=== PATIENT | male | born 1975 | race Caucasian/White ===

== ENCOUNTER 2019-07-14 18:44 | Emergency (ER) | payer OTHER ==
[~2019-07-14] VITALS: Ht 172.7 cm; Wt 81.6 kg
--- NOTE | 2019-07-14 19:04 | NUR ---
Patient arrive at the ER with chief complaint of adore. lower extremity pain. Left LE more painful than right. Patient with left leg/foot splint in place. Fractured his foot x1 month ago per pt. Pt AAOx4. No cardiovascular concern. Respiratory even and unlabored. No /GI concern.
--- NOTE | 2019-07-14 19:06 | NUR ---
Dr Perry at bedside for MSE.
[2019-07-14 19:12] LABS: BASOPHILS % (AUTO) 0.8 % (0.0-2.0); EOSINOPHILS # (AUTO) 0.1 K/uL (0.0-0.7); EOSINOPHILS % (AUTO) 2.4 % (0.0-7.0); HEMATOCRIT 41.7 % (36.7-47.1); HEMOGLOBIN 14.1 g/dL (12.5-16.3); LYMPHOCYTES # (AUTO) 2.1 K/uL (20.0-40.0); LYMPHOCYTES % (AUTO) 38.2 % (20.5-51.5); MEAN CORPUSCULAR HEMOGLOBIN 31.1 uug (23.8-33.4); MEAN CORPUSCULAR HGB CONC 34 g/dL (32.5-36.3); MEAN CORPUSCULAR VOLUME 92.1 fL (73.0-96.2); MONOCYTES # (AUTO) 0.6 K/uL (2.0-10.0); MONOCYTES % (AUTO) 11.5 % (0.0-11.0); NEUTROPHILS # (AUTO) 2.6 K/uL (1.8-8.9); NEUTROPHILS % (AUTO) 47.1 % (38.5-71.5); PLATELET COUNT (AUTO) 215 K/uL (152-348); RED BLOOD CELL COUNT(AUTO) 4.53 MIL/uL (4.06-5.63); WHITE BLOOD COUNT (AUTO) 5.6 K/uL (3.6-10.2)
[2019-07-14 19:18] LABS: CREATININE 0.9 mg/dL (0.6-1.3); POTASSIUM 3.9 mmol/L (3.5-5.1)
[2019-07-14 19:31] LABS: BILIRUBIN,DIRECT 0.1 mg/dL (0.0-0.2); BILIRUBIN,TOTAL 0.1 mg/dL (0.2-1.0); TOTAL PROTEIN, SERUM 7.1 g/dL (6.4-8.2)
[2019-07-14] MEDS ORDERED: IBUPROFEN 800 MG TABLET ONE (20:20)
[2019-07-14] MEDS ORDERED: IBUPROFEN 800 MG TABLET PO ONE (20:30)
[2019-07-14] MEDS ORDERED: ENOXAPARIN SODIUM 80 MG/0.8 ML DISP.SYRIN SQ ONE ×2 (20:45→20:49)
[2019-07-14] MEDS ORDERED: MORPHINE SULFATE 4 MG/1 ML DISP.SYRIN IV ONE (20:45)
[2019-07-14] MEDS ORDERED: MORPHINE SULFATE 4 MG/1 ML DISP.SYRIN ONE (20:50)
[2019-07-14] MEDS ORDERED: CYCL10TA9 PO (22:12)
--- NOTE | 2019-07-14 22:39 | NUR ---
Patient asleep in bed. No signs or symptoms of pain at this time. VSS.
--- NOTE | 2019-07-15 00:08 | NUR ---
[facility] called and stated that patient had been accepted for admission. Dr Lozoya will be the admitting physician. [facility] and report.
--- NOTE | 2019-07-15 01:04 | NUR ---
spoke to Lety, from [facility] to set up transportation to [facility]. authorization code for ambualnce: [id number] eta: [id number] trip# [id number]
--- NOTE | 2019-07-15 01:22 | NUR ---
[facility]ST[facility] and gave report.
--- NOTE | 2019-07-15 02:26 | NUR ---
Patient Tranfers to outside Facility Physician: Dr Lozoya Location: [facility] Picked up by ambulance #[id number] accompanied by 2 paramedics via gurney. All belongings and paper work sent with patient.
== END 2019-07-15 02:28 | disposition short-term general hospital (02) ==
LOC: ER 18:47
DX: I82.4Z2 Acute embolism and thrombosis of unspecified deep veins of left distal lower extremity (principal); F17.200 Nicotine dependence, unspecified, uncomplicated; F41.9 Anxiety disorder, unspecified; F32.9 Major depressive disorder, single episode, unspecified; Z79.899 Other long term (current) drug therapy
CPT/HCPCS: 36415; 80048; 80076; 82550; 83880; 85025; 85730; 93970; 96372; 96374; 99285; J1650; J2270; A4663